=== PATIENT | male | born 1990 | race Caucasian/White ===

== ENCOUNTER 2021-08-08 12:03 | Emergency (ER) | payer OTHER ==
[~2021-08-08] VITALS: Ht 170.2 cm; Wt 88.0 kg
[2021-08-08] MEDS ORDERED: PREVACID 15 MG15 M4 DISSOLVE (12:27)
[2021-08-08] MEDS ORDERED: HYDROXYZINE PAM25 M1 PO (12:27)
[2021-08-08] MEDS ORDERED: ZOFRAN ODT4 MG DISSOLVE (12:27)
[2021-08-08 13:16] LABS: ABSOLUTE LYMPHOCYTES 1.9 thou/uL (0.8-5.3); ABSOLUTE MONOCYTES 0.6 thou/uL (0.0-1.2); ABSOLUTE NEUTROPHILS 9.9 thou/uL (1.6-8.1); BASOPHILS 0.2 %; EOSINOPHILS 0.1 %; HEMATOCRIT 47.5 % (42.0-52.0); HEMOGLOBIN 16.4 gm/dL (14.0-18.0); LYMPHOCYTES 15.2 %; MCH 31.7 pg (26.0-34.0); MCHC 34.4 g/dL (28.0-37.0); MCV 92.1 fL (80.0-100.0); MONOCYTES 4.5 %; NUCLEATED RBCS 0 /100WBC; PLATELET COUNT* 268 thou/uL (150-400); RBC 5.16 mil/uL (4.50-6.00); RDW-CV 12.3 % (10.5-14.5); WBC 12.3 thou/uL (4.0-11.0)
[2021-08-08 13:20] LABS: POTASSIUM 4.3 mmol/L (3.5-5.1)
[2021-08-08 13:47] LABS: CALCIUM 9.7 mg/dL (8.5-10.1); CREATININE 1.4 mg/dL (0.6-1.3)
[2021-08-08 13:51] LABS: ALBUMIN 4.5 g/dL (3.4-5.0); TOTAL PROTEIN 8.6 g/dL (6.4-8.2)
[2021-08-08] MEDS ORDERED: PROTONIX40 M2 PO (14:55)
[2021-08-08 15:02] VITALS: BP 107/68
== END 2021-08-08 15:02 | disposition home or self-care (01) ==
LOC: M.ERS 12:03
PROVIDERS: Family Medicine
DX: R11.2 Nausea with vomiting, unspecified (principal); K21.9 Gastro-esophageal reflux disease without esophagitis